=== PATIENT | female | born 1980 | race Caucasian/White ===

== ENCOUNTER → 2016-10-18 | Outpatient (CLI) | payer OTHER ==
[2014-11-18 12:46] VITALS: BP 136/85
--- NOTE | 2016-10-18 16:40 | VAS ---
HISTORY: Preoperative clearance prior to oral surgery Study: Carotid Doppler ultrasound Comparison: 11/17/2014 Technique: Multiple javier scale and color flow Doppler images of the right and left carotid arterial system were obtained. The vertebral arterial system was evaluated as well. Findings: Normal color flow Doppler is seen throughout the right and left carotid arterial system. No hemodyn amically significant stenosis is seen based on velocity criteria. The right and left vertebral colton thomas demonstrate antegrade flow. Solid and cystic 1.8 x 1.4 cm right thyroid nodule is noted. IMPRESSION: 1. No hemodynamically significant stenosis. 2. Right thyroid nodule. Recommend nonemergent thyroid ultrasound, if not recently or previously per formed. Reported By:
== END ==
LOC: RAD 14:04
PROVIDERS: ATTEND Internal Medicine
DX: Z01.810 Encounter for preprocedural cardiovascular examination (principal); R94.31 Abnormal electrocardiogram [ECG] [EKG]; G45.8 Other transient cerebral ischemic attacks and related syndromes; E78.2 Mixed hyperlipidemia; Z72.0 Tobacco use
CPT/HCPCS: 93306; 93880

== ENCOUNTER → 2016-11-05 | Outpatient (CLI) | payer OTHER ==
[2014-11-18 12:46] VITALS: BP 136/85
== END ==
LOC: RAD 08:59
PROVIDERS: ATTEND Internal Medicine
DX: Z01.810 Encounter for preprocedural cardiovascular examination (principal); Z72.0 Tobacco use; R94.31 Abnormal electrocardiogram [ECG] [EKG]; G45.8 Other transient cerebral ischemic attacks and related syndromes; R06.02 Shortness of breath
CPT/HCPCS: 93017